=== PATIENT | female | born 1985 | race Caucasian/White ===

== ENCOUNTER 2021-06-02 09:21 | Emergency (ER) | payer BC ==
[~2021-06-02] VITALS: Ht 170.2 cm; Wt 72.1 kg
[2021-06-02] MEDS ORDERED: MORPHINE SULFATE 2 MG/ML DISP.SYRIN. IV ONE ×2 (10:15→11:45)
[2021-06-02] MEDS ORDERED: IV NORMAL SALINE 1,000ML 1,000 ML IV ONE (10:15)
[2021-06-02] MEDS ORDERED: ONDANSETRON PF 4 MG/2 ML VIAL. IVP ONE (10:15)
--- NOTE | 2021-06-02 10:17 | PHYS DOC ---
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 The patient did a urine dip and had leukocytes so she was placed on Bactrim. She has been taking this and Pyridium. Her pain has gotten worse and now it is radiating up into her lower back. She is concerned that she might either have a kidney stone or that the antibiotic is not working for her infection. Patient has no history of kidney stones. She denies fever or chills. She has no other complaints this time. Review of Systems: Review of Systems: Constitutional: Denies fever or chills Eyes: Denies change in visual acuity HENT: Denies nasal congestion or sore throat Respiratory: Denies cough or shortness of breath Cardiovascular: Denies chest pain or edema GI: Suprapubic abdominal pain. Denies nausea, vomiting, bloody stools or diarrhea : Increased urinary frequency Musculoskeletal: Denies back pain or joint pain Integument: Denies rash Neurologic: Denies headache, focal weakness or sensory changes Endocrine: Denies polyuria or polydipsia Lymphatic: Denies swollen glands Psychiatric: Denies depression or anxiety Allergies: Allergies: Allergies Coded Allergies Type Severity Reaction Last Updated Verified Penicillins Allergy Intermediate unknown 06/02/21 Yes Physical Exam: PE: Constitutional: Well developed, well nourished, no acute distress, non-toxic rachele earance. [] HENT: Normocephalic, atraumatic, bilateral external ears normal, oropharynx moist, no oral exudates, nose normal. [] Eyes: PERRLA, EOMI, conjunctiva normal, no discharge. [] Neck: Normal range of motion, no tenderness, supple, no stridor. [] Cardiovascular: Heart rate regular rhythm, no murmur [] Lungs & Thorax: Bilateral breath sounds clear to auscultation [] Abdomen: Bowel sounds normal, soft, suprapubic tenderness, no masses, no pulsatile masses. [] Skin: Warm, dry, no erythema, no rash. [] Back: No tenderness, right CVA tenderness. [] Extremities: No tenderness, no cyanosis, no clubbing, ROM intact, no edema. [] Neurologic: Alert and oriented X 3, normal motor function, normal sensory function, no focal deficits noted. [] Psychologic: Affect normal, judgement normal, mood normal. [] EKG: EKG: [] Radiology/Procedures: Radiology/Procedures: [] Impressions: CT abdomen pelvis without contrast. HISTORY: Blood in urine, back pain CT abdomen pelvis was done without contrast. Lung bases are clear. There is no effusion. Liver is unremarkable. Patient's had a cholecystectomy. Spleen and adrenal glands are normal. There are changes from gastric bypass. There is no renal mass or hydronephrosis or intrarenal calculus on either side. Ureters are nondilated. There are multiple phleboliths in the pelvis. A definite ureteral calculus is not identified but a nonobstructive calculus would be difficult to exclude. Uterus and ovaries are unremarkable. Appendix is normal. There is no bowel obstruction. There is no free fluid in the pelvis. Bladder was almost empty and not optimally evaluated. IMPRESSION: 1. Previous gastric bypass. 2. No renal or definite ureteral calculus or hydronephrosis. 3. Normal appendix. PQRS Compliance Statement: One or more of the following individualized dose reduction techniques were u tilized for this examination: 1. Automated exposure control 2. Adjustment of the mA and/or kV according to patient size 3. Use of iterative reconstruction technique Electronically signed by: John Cadet MD (06/02/2021 11:07 AM) [facility] DICTATED AND SIGNED BY: JOHN CADET MD DATE: 06/02/21 1103 Heart Score: C/O Chest Pain: N/A Risk Factors: Risk Factors: DM, Current or recent (<one month) smoker, HTN, HLP, family hi story of CAD, obesity. Risk Scores: Score 0 - 3: 2.5% MACE over next 6 weeks - Discharge Home Score 4 - 6: 20.3% MACE over next 6 weeks - Admit for Clinical Observation Score 7 - 10: 72.7% MACE over next 6 weeks - Early Invasive Strategies Course & Med Decision Making: Course & Med Decision Making Pertinent Labs and Imaging studies reviewed. (See chart for details) The patient's urinalysis is not conclusive due to Pyridium use. CT scan was negative for acute findings. I am concerned for resistant UTI from the Bactrim. I will give her Rocephin in the ER and discharge her on Levaquin for 5 days. She is stable for discharge at this time. [] [place] Disclaimer: Dragon Disclaimer: This electronic medical record was generated, in whole or in part, using a voice recognition dictation system. Departure Departure: Impression: Primary Impression: UTI (urinary tract infection) Qualified Codes: N30.01 - Acute cystitis with hematuria Additional Impression: Abdominal pain Qualified Codes: R10.30 - Lower abdominal pain, unspecified Disposition: HOME / SELF CARE / HOMELESS Condition: STABLE Referrals: JEEVAN FIGUEROA MD (PCP) Patient Instructions: Urinary Tract Infection, Lbav-bc-Bsif Scripts Levofloxacin (LEVOFLOXACIN) 750 Mg Tablet 1 TAB PO DAILY for UTI, #5 TAB Prov: IZABELLA HILTON DO 06/02/21 IZABELLA HILTON DO Jun 02, 2021 10:17
[2021-06-02 10:50] LABS: CALCIUM 8.8 mg/dL (8.5-10.1); CREATININE 0.7 mg/dL (0.6-1.0); GFR 95.2; POTASSIUM 4.4 mmol/L (3.5-5.1)
[2021-06-02 10:55] LABS: ALBUMIN 3.7 g/dL (3.4-5.0); ALBUMIN/GLOBULIN RATIO 1.1 (1.0-1.7); TOTAL BILIRUBIN 0.3 mg/dL (0.2-1.0)
[2021-06-02 10:57] LABS: CLARITY,URINE BLOODY; COLOR,URINE RED
[2021-06-02 10:58] LABS: BACTERIA,URINE FEW /HPF (0-FEW); SQUAMOUS EPITHELIAL CELL,UR FEW /LPF
--- NOTE | 2021-06-02 11:09 | RAD ---
CT abdomen pelvis without contrast. HISTORY: Blood in urine, back pain CT abdomen pelvis was done without contrast. Lung bases are clear. There is no effusion. Liver is unr emarkable. Patient's had a cholecystectomy. Spleen and adrenal glands are normal. There are changes f rom gastric bypass. There is no renal mass or hydronephrosis or intrarenal calculus on either side. U reters are nondilated. There are multiple phleboliths in the pelvis. A definite ureteral calculus is not identified but a nonobstructive calculus would be difficult to exclude. Uterus and ovaries are un remarkable. Appendix is normal. There is no bowel obstruction. There is no free fluid in the pelvis. Bladder was almost empty and not optimally evaluated. IMPRESSION: 1. Previous gastric bypass. 2. No renal or definite ureteral calculus or hydronephrosis. 3. Normal appendix. PQRS Compliance Statement: One or more of the following individualized dose reduction techniques were utilized for this examinat ion: 1. Automated exposure control 2. Adjustment of the mA and/or kV according to patient size 3. Use of iterative reconstruction technique Electronically signed by: John Colon MD (06/02/2021 11:07 AM) [facility]
[2021-06-02 11:16] LABS: BASO % 1 % (0-3); EOS # 0.5 x10^3/uL (0.0-0.7); EOS % 9 % (0-3); HEMOGLOBIN 10.9 g/dL (12.0-15.5); LYMPH # 1.2 x10^3/uL (1.0-4.8); LYMPH % 21 % (24-48); MEAN CORPUSCULAR HEMOGLOBIN 28 pg (25-35); MEAN CORPUSCULAR HGB CONC 32 g/dL (31-37); MEAN CORPUSCULAR VOLUME 88 fL (79-100); MONO # 0.3 x10^3/uL (0.0-1.1); MONO % 6 % (0-9); NEUT # 3.7 x10^3uL (1.8-7.7); NEUT % 63 % (31-73); PLATELET COUNT 259 x10^3/uL (140-400); RED BLOOD COUNT 3.85 x10^6/uL (3.50-5.40); RED CELL DISTRIBUTION WIDTH 18.4 % (11.5-14.5); WHITE BLOOD COUNT 5.8 x10^3/uL (4.0-11.0)
[2021-06-02] MEDS ORDERED: LEVO750T5 PO (11:17)
[2021-06-02] MEDS ORDERED: cefTRIAXone SODIUM 1 GM VIAL ONE (11:22)
[2021-06-02] MEDS ORDERED: IV NORMAL SALINE 50ML 50 ML ONE (11:22)
[2021-06-02] MEDS ORDERED: HYDR-2759 PO (11:32)
[2021-06-02 12:05] VITALS: BP 98/57
== END 2021-06-02 12:05 | disposition home or self-care (01) ==
LOC: ER 09:21
DX: N30.01 Acute cystitis with hematuria (principal); Z90.49 Acquired absence of other specified parts of digestive tract; Z88.0 Allergy status to penicillin
CPT/HCPCS: 36415; 74176; 80053; 81001; 85025; 87086; 96361; 96365; 96375; 96376; 99284; J0696; J2270; J2405; J7030

== ENCOUNTER 2022-02-20 10:50 | Emergency (ER) | payer BC ==
[~2022-02-20] VITALS: Ht 170.2 cm; Wt 61.0 kg
[~2022-02-20 10:50] MED LIST: HYDR-2759 PO; LEVO750T5 PO
--- NOTE | 2022-02-20 11:29 | PHYS DOC ---
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 Patient was started on Paxoloxid 3 days ago for a positive COVID test. Patient is 6 days out from symptom onset. Patient has had her COVID vaccines posterior posterior, however has a history of IgG deficiency. Normally gets IgG infusions, last being 2 weeks ago. Denies any bilious or bloody emesis. Denies diarrhea or fevers. Review of Systems: Review of Systems: All other systems within normal limits except for as noted in the HPI Allergies: Allergies: Allergies Coded Allergies Type Severity Reaction Last Updated Verified Penicillins Allergy Intermediate unknown 06/02/21 Yes Physical Exam: PE: Constitutional: Well developed, well nourished, no acute distress, non-toxic appearance. [] HENT: Normocephalic, atraumatic, bilateral external ears normal, nose normal. [] Eyes: PERRLA, conjunctiva normal, no discharge. [] Neck: No rigidity, supple, no stridor. [] Cardiovascular: Regular rate and rhythm, brisk cap refill [] Lungs & Thorax: Non labored symmetric respirations, no tachypnea or respiratory distress [] Abdomen: Soft, nondistended. Skin: Warm, dry, no erythema, no rash. [] Back: Unremarkable Extremities: No deformities, range of motion grossly intact, no lower extremity edema [] Neurologic: Alert and oriented X 3, no focal deficits noted. [] Psychologic: Affect normal, judgement normal, mood normal. [] Current Patient Data: Vital Signs: Vital Signs Date Time Temp Pulse Resp B/P (MAP) Pulse Ox O2 Delivery O2 Flow Rate FiO2 02/20/22 11:12 97.9 55 18 100/57 (71) 98 EKG: EKG: [] Radiology/Procedures: Radiology/Procedures: [] Heart Score: C/O Chest Pain: No Risk Factors: Risk Factors: DM, Current or recent (<one month) smoker, HTN, HLP, family history of CAD, obesity. Risk Scores: Score 0 - 3: 2.5% MACE over next 6 weeks - Discharge Home Score 4 - 6: 20.3% MACE over next 6 weeks - Admit for Clinical Observation Score 7 - 10: 72.7% MACE over next 6 weeks - Early Invasive Strategies Course & Med Decision Making: Course & Med Decision Making Labs unremarkable. Patient given a liter of fluids and Zofran, she says she is not nauseous and is tolerating p.o. Dragon Disclaimer: Tania Disclaimer: This electronic medical record was generated, in whole or in part, using a voice recognition dictation system. Departure Departure: Impression: Primary Impression: Nausea & vomiting Disposition: HOME / SELF CARE / HOMELESS Condition: IMPROVED Referrals: JEEVAN FIGUEROA MD (PCP) Patient Instructions: Nausea and Vomiting Scripts Ondansetron (ONDANSETRON ODT) 8 Mg Tab.rapdis 8 MG PO PRN Q8HRS PRN for VOMITING, #10 TAB Prov: THOMAS AVILEZ MD 02/20/22 THOMAS AVILEZ MD February 20, 2022 11:29
[2022-02-20] MEDS ORDERED: IV NORMAL SALINE 1,000ML 1,000 ML IV ONE (11:30)
[2022-02-20] MEDS ORDERED: ONDANSETRON PF 4 MG/2 ML VIAL. IVP ONE (11:30)
[2022-02-20] MEDS ORDERED: FAMOTIDINE 20 MG/2 ML VIAL IVP ONE (11:30)
[2022-02-20 12:11] LABS: BASO % 0 % (0-3); EOS # 0.4 x10^3/uL (0.0-0.7); EOS % 8 % (0-3); HEMATOCRIT 36.2 % (36.0-47.0); HEMOGLOBIN 12.1 g/dL (12.0-15.5); LYMPH % 42 % (24-48); MEAN CORPUSCULAR HEMOGLOBIN 32 pg (25-35); MEAN CORPUSCULAR HGB CONC 34 g/dL (31-37); MEAN CORPUSCULAR VOLUME 95 fL (79-100); MONO # 0.3 x10^3/uL (0.0-1.1); MONO % 6 % (0-9); NEUT % 43 % (31-73); PLATELET COUNT 139 x10^3/uL (140-400); RED CELL DISTRIBUTION WIDTH 19.6 % (11.5-14.5); WHITE BLOOD COUNT 4.6 x10^3/uL (4.0-11.0)
[2022-02-20 12:21] LABS: CALCIUM 8.3 mg/dL (8.5-10.1); CREATININE 0.7 mg/dL (0.6-1.0)
[2022-02-20 12:22] LABS: GFR 94.7; POTASSIUM 4.4 mmol/L (3.5-5.1)
[2022-02-20 12:28] LABS: ALBUMIN 3.2 g/dL (3.4-5.0); ALBUMIN/GLOBULIN RATIO 1.2 (1.0-1.7); PHOSPHORUS 3.6 mg/dL (2.6-4.7); TOTAL BILIRUBIN 0.1 mg/dL (0.2-1.0); TOTAL PROTEIN 5.9 g/dL (6.4-8.2)
[2022-02-20 13:08] VITALS: BP 101/47
[2022-02-20] MEDS ORDERED: ONDA8TAB15 PO (13:24)
== END 2022-02-20 13:30 | disposition home or self-care (01) ==
LOC: ER 10:50
DX: U07.1 COVID-19 (principal); R11.2 Nausea with vomiting, unspecified; Z88.0 Allergy status to penicillin
CPT/HCPCS: 36415; 80053; 83690; 83735; 84100; 85025; 96361; 96374; 96375; 99284; J2405; J3490; J7030